=== PATIENT | female | born 1995 | race Caucasian/White ===

== ENCOUNTER 2025-01-08 07:51 | Emergency (ER) | payer OTHER ==
[~2025-01-08] VITALS: Ht 165.1 cm; Wt 52.2 kg
== END 2025-01-08 09:58 | disposition home or self-care (01) ==
LOC: ER 07:51
DX: R22.41 Localized swelling, mass and lump, right lower limb (principal); Z59.89 Other problems related to housing and economic circumstances
CPT/HCPCS: 73564; 99283-25